=== PATIENT | female | born 1980 ===

== ENCOUNTER 2019-06-25 18:50 | Inpatient (IN) | payer SELFPAY ==
[2019-06-25] MEDS ORDERED: Ketorolac Tromethamine 30 MG/ML VIAL ONE (20:57)
[2019-06-25] MEDS ORDERED: methylPREDNISolone Sod Succ/PF 125 MG/2 ML VIAL ONE (20:57)
[2019-06-25] MEDS ORDERED: Ondansetron PF 4 MG/2 ML Vial ONE (21:03)
[2019-06-25] MEDS ORDERED: Promethazine HCl 25 MG/ML VIAL ONE (21:54)
[2019-06-26 00:54] LABS: Hemoglobin 10.1 g/dL (12.0-16.0); Mean Corpuscular HGB CONC 30.3 g/dL (32.0-36.0); Mean Corpuscular Hemoglobin 23.8 pg (27.0-31.0); Mean Corpuscular Volume 78.6 fL (78.0-98.0); Mean Platelet Volume 7.9 fL (7.4-10.4); Platelet Count 498 thou/uL (130-400); RBC Distribution Width 16.4 % (11.5-14.5); Red Blood Cell (RBC) Count 4.23 mill/uL (4.20-5.40); White Blood Cell (WBC) Count 27.8 thou/uL (4.8-10.8)
[2019-06-26 01:04] LABS: ALT (SGPT) 13 U/L (8-55); AST (SGOT) 21 U/L (5-34); Albumin 4.3 g/dL (3.5-5.0); Alkaline Phosphatase 115 U/L (40-110); Anion Gap 19 mmol/L (10-20); BUN (Urea Nitrogen) 10 mg/dL (7.0-18.7); Bilirubin, Total 0.3 mg/dL (0.2-1.2); Calc. Creatinine Clearance 0 mL/min (70-130); Calcium 9.9 mg/dL (7.8-10.44); Carbon Dioxide 22 mmol/L (22-29); Chloride 103 mmol/L (98-107); Estimated GFR-MDRD 80; Globulin 4.5 g/dL (2.4-3.5); Glucose 72 mg/dL (70-105); Protein, Total 8.8 g/dL (6.0-8.3); Sodium 141 mmol/L (136-145)
[2019-06-26 01:11] LABS: Band 9 % (5-11); Eosinophils 1 % (0-10); Lymphocytes 8 % (21-51); MDiff Complete? YES; Monocytes 3 % (0-10); Neutrophil 79 % (42-75); Platelet Morphology Comment Appears Increased
[2019-06-26] MEDS ORDERED: Clindamycin/D5W 600 mg/50 ml Premix Bag ONE (03:27)
[2019-06-26] MEDS ORDERED: Acetaminophen 325 MG TAB PO PRN (06:12)
[2019-06-26] MEDS ORDERED: Ondansetron PF 4 MG/2 ML Vial IVP PRN (06:12)
[2019-06-26 06:37] LABS: #Basophils 0.1 thou/uL (0.0-0.2); #Monocytes 0.6 thou/uL (0.11-0.59); #Neutrophils 24.9 thou/uL (1.40-6.50); %Basophils 0.2 % (0.0-1.0); %Eosinophils 0.1 % (0.0-10.0); %Lymphocytes 7.3 % (21.0-51.0); %Monocytes 2.3 % (0.0-10.0); %Neutrophils 90.1 % (42.0-75.0); Hemoglobin 9.4 g/dL (12.0-16.0); Mean Corpuscular HGB CONC 31.3 g/dL (32.0-36.0); Mean Corpuscular Hemoglobin 24.2 pg (27.0-31.0); Mean Corpuscular Volume 77.3 fL (78.0-98.0); Mean Platelet Volume 7.6 fL (7.4-10.4); Platelet Count 477 thou/uL (130-400); RBC Distribution Width 16.1 % (11.5-14.5); White Blood Cell (WBC) Count 27.7 thou/uL (4.8-10.8)
[2019-06-26 06:58] LABS: ALT (SGPT) 12 U/L (8-55); AST (SGOT) 16 U/L (5-34); Albumin 3.8 g/dL (3.5-5.0); Alkaline Phosphatase 109 U/L (40-110); Anion Gap 16 mmol/L (10-20); BUN (Urea Nitrogen) 7 mg/dL (7.0-18.7); Bilirubin, Total 0.3 mg/dL (0.2-1.2); Calc. Creatinine Clearance 0 mL/min (70-130); Calcium 8.9 mg/dL (7.8-10.44); Carbon Dioxide 18 mmol/L (22-29); Chloride 108 mmol/L (98-107); Estimated GFR-MDRD Greater than 90; Globulin 3.9 g/dL (2.4-3.5); Glucose 113 mg/dL (70-105); Potassium 3.7 mmol/L (3.5-5.1); Protein, Total 7.7 g/dL (6.0-8.3); Sodium 138 mmol/L (136-145)
--- NOTE | 2019-06-26 08:29 | CT ---
PRELIMINARY REPORT/[facility]/EMERGENCY AFTER HOURS PROCEDURE: Neck CT with IV contrast History: Sore throat Comparison: None Findings: The adenoids and tonsillar pillars appear edematous and enlarged bilaterally. The tonsillar pillars demonstrate heterogeneous enhancement with subtle areas of intratonsillar low-density. No organized enhancing abscess or drainable fluid collection is seen at this time. Trace fluid and edema noted in the retropharyngeal space. Moderate bilateral cervical lymphadenopathy, likely reactive. Trace right mastoid fluid. Clear left mastoid air cells. Clear visualized paranasal sinuses. Unremarkable orbits. Normal epiglottis, larynx, salivary glands and thyroid. Patent airway. Impression: Heterogeneous (edematous enlargement of the tonsillar pillars suggesting bilateral tonsillitis. Ill- defined areas of intra-tonsillar low density are compatible with phlegmon. Early abscess formation c ould conceivably be obscured in the areas of phlegmon. No organized walled off enhancing drainable a bscess is seen at this time however follow-up is advised. ELECTRONICALLY SIGNED BY: Wing Sands MD Jun 26, 2019 3:24:01 AM REPAIR SUPERVISOR This report is intended for review by the ordering physician only, in accordance of law. If you recei ve this report in error, please call [facility] at [phone]. FINAL REPORT CT NECK SOFT TISSUE WITH CONTRAST: HISTORY: Pain. Difficulty swallowing. COMPARISON: None. FINDINGS/IMPRESSION: Findings and impression are concordant with the preliminary report by [facility]. POS: CET
[2019-06-26] MEDS: Enoxaparin Sodium 40 MG/0.4 ML SYRINGE SC SCH (09:45)
[2019-06-26] MEDS ORDERED: Enoxaparin Sodium 40 MG/0.4 ML SYRINGE ONE (09:51)
[2019-06-26] MEDS: NS 0.9% w/ 20 MEQ KCL 1,000 ML/1,000 ML BAG IV SCH (10:03)
[2019-06-26] MEDS ORDERED: Clindamycin/D5W 300 MG/50 ML BAG IVPB SCH (12:00)
[2019-06-26] MEDS: Ampicillin/Sulbactam 3 GM in Sodium Chloride 0.9% 100 ML IVPB SCH ×3 (13:12→23:32)
[2019-06-26] MEDS ORDERED: Iopamidol-370 76% 500 ML 1 ML ONE (14:33)
[2019-06-26 16:36] VITALS: BMI 38.5
--- NOTE | 2019-06-26 21:00 | HP ---
CHIEF COMPLAINT: Sore throat and decreased oral intake. HISTORY OF PRESENT ILLNESS: This is a 39-year-old female with past medical history of hypertension, who presented to the hospital with increased soreness in her throat over the past few days. The patient stated that she has not been able to eat or drink without great difficulty over the past 2 days, which gradually worsened to the extent she is not able to drink or eat much today without significant pain. She also complained of fever and chills and generalized body aching. In the ER, examination revealed inflamed and swollen tonsils and CT scan of the soft tissue of the neck revealed heterogeneous, edematous enlargement of the tonsillar pillars suggesting bilateral tonsillitis and ill-defined areas of intratonsillar low-density areas compatible with a phlegmon. REVIEW OF SYSTEMS: Negative except as noted in the HPI. PAST MEDICAL HISTORY: Hypertension. FAMILY HISTORY: Unremarkable for her current presentation. PAST SURGICAL HISTORY: Unremarkable. SOCIAL HISTORY: The patient denies smoking, alcohol intake, or illicit drug use, MEDICATIONS: No known home medications. PHYSICAL EXAMINATION: GENERAL: The patient is alert and oriented x3. HEENT: Head is normocephalic, atraumatic. Her extraocular muscles are intact. NECK: Appears to be supple with tenderness below her angle of the mandible bilaterally. The patient is unable to open her mouth fully. CARDIAC: Revealed normal S1 and S2. Regular rate and rhythm. No murmurs, rubs, or gallops. CHEST: Lung auscultation was clear bilaterally. ABDOMEN: Soft, nontender, nondistended. Bowel sounds are positive bilaterally. NEUROLOGICAL: Unremarkable. LABORATORY DATA: Initially showed WBC count of 27.8, RBC 4.2, hemoglobin 10, hematocrit 33, platelet count of 493. Her chemistry panel was unremarkable except for potassium of 3, lactic acid was 0.9. IMPRESSION AND PLAN: 1. Sepsis due to tonsillitis. Rapid Streptococcus A test was positive and cultures are pending. IV Unasyn 3 g IV q.6 hours has been initiated. IV fluids were also started. 2. Hypertension. The patient appears to be in normotensive state at this time. Job ID: [id number]
[2019-06-27] MEDS: NS 0.9% w/ 20 MEQ KCL 1,000 ML/1,000 ML BAG IV SCH ×2 (04:00→07:57)
[2019-06-27] MEDS: Ampicillin/Sulbactam 3 GM in Sodium Chloride 0.9% 100 ML IVPB SCH ×3 (05:26→17:54)
[2019-06-27 06:31] LABS: Hemoglobin 7.9 g/dL (12.0-16.0); Mean Corpuscular HGB CONC 30.4 g/dL (32.0-36.0); Mean Corpuscular Hemoglobin 23.7 pg (27.0-31.0); Mean Corpuscular Volume 78.2 fL (78.0-98.0); Mean Platelet Volume 7.7 fL (7.4-10.4); Platelet Count 412 thou/uL (130-400); RBC Distribution Width 16.1 % (11.5-14.5); Red Blood Cell (RBC) Count 3.34 mill/uL (4.20-5.40); White Blood Cell (WBC) Count 16.7 thou/uL (4.8-10.8)
[2019-06-27 06:45] LABS: ALT (SGPT) 11 U/L (8-55); AST (SGOT) 20 U/L (5-34); Albumin 3.1 g/dL (3.5-5.0); Alkaline Phosphatase 82 U/L (40-110); Anion Gap 12 mmol/L (10-20); BUN (Urea Nitrogen) 7 mg/dL (7.0-18.7); Bilirubin, Total 0.3 mg/dL (0.2-1.2); Calc. Creatinine Clearance 196 mL/min (70-130); Calcium 8.4 mg/dL (7.8-10.44); Carbon Dioxide 22 mmol/L (22-29); Chloride 109 mmol/L (98-107); Estimated GFR-MDRD Greater than 90; Globulin 3.2 g/dL (2.4-3.5); Glucose 97 mg/dL (70-105); Potassium 3.7 mmol/L (3.5-5.1); Protein, Total 6.3 g/dL (6.0-8.3); Sodium 139 mmol/L (136-145)
[2019-06-27 07:13] LABS: #Eosinphils 0.1 thou/uL (0.0-0.7); #Lymphocytes 4.3 thou/uL (1.20-3.40); #Monocytes 1.1 thou/uL (0.11-0.59); #Neutrophils 11.2 thou/uL (1.40-6.50); %Basophils 0.1 % (0.0-1.0); %Eosinophils 0.3 % (0.0-10.0); %Lymphocytes 25.7 % (21.0-51.0); %Monocytes 6.8 % (0.0-10.0); %Neutrophils 67.2 % (42.0-75.0); Hypochromia MODERATE=16-30 cells (100X) (0-5/hpf); MDiff Complete? YES; Microcytosis SLIGHT = 6-15 cells (100X) (0-5/hpf); Ovalocytes SLIGHT = 2-5 cells (100X) (0-1/hpf); Platelet Morphology Comment Appears Decreased; Polychromasia SLIGHT = 2-3 cells (100X) (0-2/hpf); Reflex for Review?? NO
[2019-06-27] MEDS: Enoxaparin Sodium 40 MG/0.4 ML SYRINGE SC SCH (07:57)
--- NOTE | 2019-06-27 19:32 | PDOC.HOSPP ---
- Subjective Encounter Date: 06/27/19 Subjective: Feels better. Able to open her mouth easily. - Objective Vital Signs & Weight: Vital Signs (12 hours) Temp Pulse Resp BP Pulse Ox 06/27/19 16:21 98.8 F 100 16 149/96 H 100 06/27/19 11:13 97.9 F 96 18 162/105 H 100 Weight Weight 210 lb 4.8 oz I&O: 06/26/19 06/27/19 06/28/19 06:59 06:59 06:59 Intake Total 1950 Balance 1950 Result Diagrams: 06/27/19 05:55 06/27/19 05:55 Hospitalist ROS - Medication Medications: Active Medications Generic Name Dose Route Start Last Admin Trade Name Freq PRN Reason Stop Dose Admin Enoxaparin Sodium 40 mg 06/26/19 09:00 06/27/19 07:57 Lovenox SC 40 mg 0900 STELLA Administration Potassium Chloride/Sodium Chloride 1,000 ml in 1,000 mls @ 75 mls/hr 06/26/19 06:15 06/27/19 07:57 Ns 0.9% W/ 20 Meq Kcl IV Not Given .[id number] STELLA Ampicillin Sodium/Sulbactam 100 mls @ 200 mls/hr 06/26/19 12:00 06/27/19 17: 54 Sodium 3 gm/ Sodium Chloride IVPB 100 mls Q6HR STELLA Administration Sodium Chloride 10 ml 06/26/19 21:00 06/27/19 07:56 Flush - Normal Saline IVF 10 ml Q12HR STELLA Administration - Exam General Appearance: awake alert ENT: normocephalic atraumatic, no oropharyngeal lesions Neck: supple, no JVD Heart: RRR, no murmur, no gallops, no rubs, normal peripheral pulses Respiratory: CTAB, no wheezes, no rales, no ronchi, normal chest expansion Gastrointestinal: soft, non-tender, non-distended, normal bowel sounds Hosp A/P (1) Sepsis Code(s): A41.9 - SEPSIS, UNSPECIFIED ORGANISM Status: Acute (2) Tonsillitis Code(s): J03.90 - ACUTE TONSILLITIS, UNSPECIFIED Status: Acute - Plan Sepsis is improving. Continue Unasyn. Advance diet as tolerated.
[2019-06-28] MEDS: Ampicillin/Sulbactam 3 GM in Sodium Chloride 0.9% 100 ML IVPB SCH ×3 (00:25→11:08)
[2019-06-28] MEDS: NS 0.9% w/ 20 MEQ KCL 1,000 ML/1,000 ML BAG IV SCH ×2 (01:20→14:19)
[2019-06-28 06:10] LABS: Anion Gap 10 mmol/L (10-20); BUN (Urea Nitrogen) 5 mg/dL (7.0-18.7); Calc. Creatinine Clearance 186 mL/min (70-130); Calcium 8.5 mg/dL (7.8-10.44); Carbon Dioxide 25 mmol/L (22-29); Chloride 108 mmol/L (98-107); Estimated GFR-MDRD Greater than 90; Glucose 89 mg/dL (70-105); Potassium 3.9 mmol/L (3.5-5.1); Sodium 139 mmol/L (136-145)
[2019-06-28] MEDS: Enoxaparin Sodium 40 MG/0.4 ML SYRINGE SC SCH (07:08)
[2019-06-28 11:25] VITALS: BP 105/70; TEMP 98
== END 2019-06-28 15:14 | disposition home or self-care (01) | DRG 872 ==
LOC: ERS 18:50 → ERHOLD 06-26 03:59 → T4-A 06-26 14:34
PROVIDERS: ADMIT Internal Medicine Sleep Medicine; ATTEND Internal Medicine
DX: A41.9 Sepsis, unspecified organism (principal); I10 Essential (primary) hypertension; J03.00 Acute streptococcal tonsillitis, unspecified
CPT/HCPCS: 36415; 70491; 80048; 80053; 83605; 84443; 85025; 87040; 87081; 87430; J0295; J1650; J1885; J2405; J2550; J2930; J3480; J3490; Q9967

== ENCOUNTER 2021-08-19 10:51 | Emergency (ER) | payer SELFPAY ==
[2021-08-19] MEDS ORDERED: Ketorolac Tromethamine 30 MG/ML VIAL ONE (11:45)
[2021-08-19 12:48] LABS: BHCG - Serum POSITIVE (NEGATIVE)
[2021-08-19 12:49] LABS: Pregs Control Background? CLEAR/WHITE (CLR/WHITE); Pregs Control Bar Appear? YES (CONTROL BAR)
[2021-08-19 12:56] LABS: #Basophils 0.1 thou/uL (0.0-0.2); #Eosinphils 0.1 thou/uL (0.0-0.7); #Lymphocytes 1.8 thou/uL (1.20-3.40); #Monocytes 1.2 thou/uL (0.11-0.59); #Neutrophils 7.5 thou/uL (1.40-6.50); %Basophils 0.5 % (0.0-1.0); %Eosinophils 0.8 % (0.0-10.0); %Monocytes 11.2 % (0.0-10.0); %Neutrophils 70.5 % (42.0-75.0); Hemoglobin 10.3 g/dL (12.0-16.0); Mean Corpuscular Hemoglobin 21.2 pg (27.0-31.0); Mean Corpuscular Volume 73.2 fL (78.0-98.0); Mean Platelet Volume 7.7 fL (7.4-10.4); Platelet Count 539 thou/uL (130-400); RBC Distribution Width 17.2 % (11.5-14.5); Red Blood Cell (RBC) Count 4.86 mill/uL (4.20-5.40); White Blood Cell (WBC) Count 10.6 thou/uL (4.8-10.8)
[2021-08-19 12:57] LABS: Hypochromia SLIGHT = 6-15 cells (100X) (0-5/hpf); MDiff Complete? YES; Microcytosis SLIGHT = 6-15 cells (100X) (0-5/hpf); Platelet Morphology Comment Appears Increased; Polychromasia SLIGHT = 2-3 cells (100X) (0-2/hpf)
[2021-08-19 13:04] LABS: ALT (SGPT) 8 U/L (8-55); AST (SGOT) 16 U/L (5-34); Albumin 4.4 g/dL (3.5-5.0); Alkaline Phosphatase 89 U/L (40-110); Anion Gap 16 mmol/L (10-20); BUN (Urea Nitrogen) 4 mg/dL (7.0-18.7); Bilirubin, Total 0.3 mg/dL (0.2-1.2); Calc. Creatinine Clearance 0 mL/min (70-130); Calcium 9.1 mg/dL (7.8-10.44); Carbon Dioxide 19 mmol/L (22-29); Chloride 103 mmol/L (98-107); Glucose 89 mg/dL (70-105); Potassium 3.1 mmol/L (3.5-5.1); Protein, Total 8.4 g/dL (6.0-8.3); Sodium 135 mmol/L (136-145)
== END 2021-08-19 16:01 | disposition home or self-care (01) ==
LOC: ERS 10:51
DX: O20.0 Threatened abortion (principal); O99.830 Other infection carrier state complicating pregnancy; K04.7 Periapical abscess without sinus; O10.919 Unspecified pre-existing hypertension complicating pregnancy, unspecified trimester; Z3A.00 Weeks of gestation of pregnancy not specified; Z79.899 Other long term (current) drug therapy
CPT/HCPCS: 36415; 70491; 80053; 84702; 84703; 85025; 96372; J1885